=== PATIENT | female | born 1965 | race Caucasian/White ===

== ENCOUNTER 2016-12-26 11:16 | Inpatient (IN) | payer OTHER ==
[~2016-12-26] VITALS: Ht 157.5 cm; Wt 61.7 kg
[2016-12-26] MEDS ORDERED: MORPHINE SULFATE 4 MG/ML CPJ (NOT FOR IM USE) IV STA (13:56)
[2016-12-26] MEDS ORDERED: ONDANSETRON HCL 4MG/2ML VIAL IV STA (13:56)
[2016-12-26] MEDS ORDERED: SODIUM CHLORIDE 0.9% 1000ML BAG (SEPSIS BOLUS) IV ONE (14:00)
[2016-12-26] MEDS ORDERED: PIPERACILLIN/TAZ 3.375G PREMIX 50 ML IV NR (15:00)
[2016-12-26] MEDS ORDERED: BUPIVACAINE HCL 0.5% (5MG/ML) 50ML ONE (15:30)
[2016-12-26] MEDS ORDERED: SKIN ADHESIVE 0.7 GM EA TOP ONE (15:30)
[2016-12-26 15:47] LABS: HEMATOCRIT. 41.6 % (36.0-48.0); HEMOGLOBIN. 14.3 g/dL (12.0-16.0); MEAN CORPUSCULAR HEMOGLOBIN 30.9 pg (28.0-32.0); MEAN CORPUSCULAR VOLUME 90.2 fL (81.0-99.0); MEAN PLATELET VOLUME 8.7 fl (7.4-10.4); PLATELET 164 x1000/uL (130-400); RED BLOOD CELL COUNT 4.61 mill/uL (4.2-5.4); RED CELL DISTRIBUTION WIDTH 13.6 % (11.6-14.6)
[2016-12-26 15:49] LABS: PROTHROMBIN TIME 10.6 sec (9.4-11.6)
[2016-12-26 15:53] LABS: CARBON DIOXIDE 25 mEq/L (21-32); CHLORIDE 106 mEq/L (98-107); HCG SCREEN NEGATIVE
[2016-12-26 15:58] LABS: TROPONIN I < 0.02 ng/mL (0.00-0.04)
[2016-12-26] MEDS ORDERED: MORPHINE SULFATE 2 MG/ML CPJ (NOT FOR IM USE) IV PRN (16:00)
[2016-12-26] MEDS ORDERED: ONDANSETRON HCL 4MG/2ML VIAL IV PRN ×2 (16:00→17:45)
[2016-12-26] MEDS ORDERED: MORPHINE SULFATE 4 MG/ML CPJ (NOT FOR IM USE) IV PRN (16:00)
[2016-12-26 16:11] LABS: PLATELET ESTIMATE NORMAL
[2016-12-26] MEDS ORDERED: DEXAMETHASONE 4MG/ML 1ML VIAL ONE (17:30)
[2016-12-26] MEDS ORDERED: PROPOFOL 200MG/20ML VIAL IV ONE (17:30)
[2016-12-26] MEDS ORDERED: ROCURONIUM BROMIDE 10MG/ML VIAL 5ML IV ONE (17:30)
[2016-12-26] MEDS ORDERED: LABETALOL HCL 20MG/4ML CARPUJECT IV PRN (17:45)
[2016-12-26] MEDS ORDERED: MEPERIDINE HCL/PF 25MG/ML CPJ IV PRN (17:45)
[2016-12-26] MEDS ORDERED: HYDROCODONE/ACETAMINOPHEN 5/325MG TABLET PO PRN (19:00)
[2016-12-26] MEDS: HYDROMORPHONE HCL/PF 2MG/ML CPJ IV PRN ×2 (19:08→19:17)
[2016-12-26] MEDS ORDERED: DEXT 5%/0.45% NACL KCL 20MEQ/L 1,000 ML IV SCH (20:00)
[2016-12-26 20:20] VITALS: BP 90/51
[2016-12-26 20:35] VITALS: BP 90/51
[2016-12-26] MEDS: CEFAZOLIN 1000MG PREMIX 50 ML IV SCH (20:55)
[2016-12-26] MEDS: ACETAMINOPHEN 325MG TABLET PO PRN (21:27)
[2016-12-26] MEDS: METRONIDAZOLE 500 MG PREMIX 100 ML IV SCH (21:35)
[2016-12-26 23:00] VITALS: BP 90/64
[2016-12-27 00:45] VITALS: BP 110/54
[2016-12-27] MEDS: METRONIDAZOLE 500 MG PREMIX 100 ML IV SCH ×4 (03:28→22:43)
[2016-12-27 04:00] VITALS: BP 114/50
[2016-12-27] MEDS: CEFAZOLIN 1000MG PREMIX 50 ML IV SCH ×3 (04:52→21:29)
[2016-12-27 07:56] LABS: BASOPHILS % 0.1 % (0.0-2.0); HEMATOCRIT. 35.9 % (36.0-48.0); HEMOGLOBIN. 12.3 g/dL (12.0-16.0); LYMPHOCYTES % 7.6 % (20.0-50.0); MEAN CORPUSCULAR HEMOGLOBIN 30.8 pg (28.0-32.0); MEAN CORPUSCULAR VOLUME 89.8 fL (81.0-99.0); MEAN PLATELET VOLUME 8.9 fl (7.4-10.4); MONOCYTES % 3.9 % (2.0-8.0); NEUTROPHILS % 88.4 % (40.0-76.0); PLATELET 159 x1000/uL (130-400)
[2016-12-27 08:00] VITALS: BP 95/60
[2016-12-27 08:23] LABS: CARBON DIOXIDE 25 mEq/L (21-32); CHLORIDE 108 mEq/L (98-107)
[2016-12-27] MEDS: ENOXAPARIN 40MG/0.4ML SYR SUBCUT SCH (08:25)
[2016-12-27 12:00] VITALS: BP 101/72
[2016-12-27] MEDS: DEXT 5%/0.45% NACL KCL 20MEQ/L 1,000 ML IV SCH (13:19)
[2016-12-27] MEDS ORDERED: MORPHINE SULFATE 4 MG/ML CPJ (NOT FOR IM USE) IV PRN (14:45)
[2016-12-27 16:00] VITALS: BP 100/55
[2016-12-27] MEDS: ACETAMINOPHEN 325MG TABLET PO PRN ×2 (16:25→17:34)
[2016-12-27 20:00] VITALS: BP 100/59
[2016-12-27] MEDS ORDERED: POTASSIUM CHLORIDE 20MEQ TABLET SR PO NR (21:00)
[2016-12-28] VITALS: BP 106/56
[2016-12-28] MEDS: CEFAZOLIN 1000MG PREMIX 50 ML IV SCH ×3 (03:16→19:34)
[2016-12-28 04:03] VITALS: BP 104/65
[2016-12-28] MEDS: DEXT 5%/0.45% NACL KCL 20MEQ/L 1,000 ML IV SCH ×3 (04:31→18:11)
[2016-12-28] MEDS: METRONIDAZOLE 500 MG PREMIX 100 ML IV SCH ×4 (04:31→22:50)
[2016-12-28 08:00] VITALS: BP 97/69
[2016-12-28] MEDS: ENOXAPARIN 40MG/0.4ML SYR SUBCUT SCH (08:45)
[2016-12-28 11:03] LABS: HEMATOCRIT. 35.7 % (36.0-48.0); HEMOGLOBIN. 12.2 g/dL (12.0-16.0); MEAN CORPUSCULAR HEMOGLOBIN 30.4 pg (28.0-32.0); MEAN CORPUSCULAR VOLUME 88.9 fL (81.0-99.0); MEAN PLATELET VOLUME 8.4 fl (7.4-10.4); PLATELET 172 x1000/uL (130-400); RED BLOOD CELL COUNT 4.01 mill/uL (4.2-5.4); RED CELL DISTRIBUTION WIDTH 13.9 % (11.6-14.6)
[2016-12-28] MEDS: ACETAMINOPHEN 325MG TABLET PO PRN (11:16)
[2016-12-28 11:48] LABS: CARBON DIOXIDE 25 mEq/L (21-32); CHLORIDE 104 mEq/L (98-107)
[2016-12-28 12:00] VITALS: BP 102/69
[2016-12-28] MEDS ORDERED: POTASSIUM CHLORIDE 20MEQ TABLET SR PO NR (12:15)
[2016-12-28 13:17] LABS: PLATELET ESTIMATE NORMAL
[2016-12-28 16:00] VITALS: BP 122/64
[2016-12-28 20:00] VITALS: BP 101/62
[2016-12-28] MEDS: HYDROCODONE/ACETAMINOPHEN 5/325MG TABLET PO PRN (20:01)
[2016-12-29] VITALS: BP 93/50
[2016-12-29] MEDS: CEFAZOLIN 1000MG PREMIX 50 ML IV SCH ×3 (03:43→20:25)
[2016-12-29 04:00] VITALS: BP 93/58
[2016-12-29] MEDS: METRONIDAZOLE 500 MG PREMIX 100 ML IV SCH ×4 (04:45→21:16)
[2016-12-29] MEDS: DEXT 5%/0.45% NACL KCL 20MEQ/L 1,000 ML IV SCH ×2 (04:45→15:39)
[2016-12-29 08:00] VITALS: BP 102/51
[2016-12-29] MEDS: ENOXAPARIN 40MG/0.4ML SYR SUBCUT SCH (08:56)
[2016-12-29 09:31] LABS: BASOPHILS % 0.2 % (0.0-2.0); EOSINOPHILS % 0.8 % (0.0-5.0); HEMATOCRIT. 33.3 % (36.0-48.0); HEMOGLOBIN. 11.4 g/dL (12.0-16.0); LYMPHOCYTES % 7.3 % (20.0-50.0); MEAN CORPUSCULAR HEMOGLOBIN 30.5 pg (28.0-32.0); MEAN CORPUSCULAR VOLUME 89.3 fL (81.0-99.0); MEAN PLATELET VOLUME 8.5 fl (7.4-10.4); MONOCYTES % 4.7 % (2.0-8.0); PLATELET 171 x1000/uL (130-400); RED BLOOD CELL COUNT 3.72 mill/uL (4.2-5.4); RED CELL DISTRIBUTION WIDTH 13.9 % (11.6-14.6)
[2016-12-29 12:00] VITALS: BP_SYST 102; BP_SYST 103; BP_DIAS 51; BP_DIAS 54
[2016-12-29 16:00] VITALS: BP_SYST 115; BP_SYST 154; BP_DIAS 66; BP_DIAS 85
[2016-12-29] MEDS ORDERED: MAGNESIUM/ALUMINUM HYDROXIDE/SIMETHICONE 30ML UDC PO PRN (16:00)
[2016-12-29 20:00] VITALS: BP 97/51
[2016-12-29] MEDS: HYDROCODONE/ACETAMINOPHEN 5/325MG TABLET PO PRN (20:45)
[2016-12-30] VITALS: BP 105/62
[2016-12-30] MEDS: CEFAZOLIN 1000MG PREMIX 50 ML IV SCH ×3 (03:08→20:16)
[2016-12-30 04:00] VITALS: BP_SYST 107; BP_SYST 133; BP_DIAS 68; BP_DIAS 96
[2016-12-30] MEDS: METRONIDAZOLE 500 MG PREMIX 100 ML IV SCH ×3 (04:28→18:21)
[2016-12-30 06:53] LABS: BASOPHILS % 0.3 % (0.0-2.0); EOSINOPHILS % 1.2 % (0.0-5.0); HEMATOCRIT. 36.6 % (36.0-48.0); HEMOGLOBIN. 12.5 g/dL (12.0-16.0); LYMPHOCYTES % 10.4 % (20.0-50.0); MEAN CORPUSCULAR HEMOGLOBIN 30.5 pg (28.0-32.0); MEAN CORPUSCULAR VOLUME 89.5 fL (81.0-99.0); MEAN PLATELET VOLUME 8.3 fl (7.4-10.4); MONOCYTES % 9.3 % (2.0-8.0); NEUTROPHILS % 78.8 % (40.0-76.0); PLATELET 209 x1000/uL (130-400); RED BLOOD CELL COUNT 4.09 mill/uL (4.2-5.4); RED CELL DISTRIBUTION WIDTH 14.2 % (11.6-14.6)
[2016-12-30 08:00] VITALS: BP 74/38
[2016-12-30] MEDS: DEXT 5%/0.45% NACL KCL 20MEQ/L 1,000 ML IV SCH ×2 (09:04→10:29)
[2016-12-30 10:09] LABS: CARBON DIOXIDE 27 mEq/L (21-32); CHLORIDE 104 mEq/L (98-107)
[2016-12-30] MEDS: ENOXAPARIN 40MG/0.4ML SYR SUBCUT SCH (10:29)
[2016-12-30 12:00] VITALS: BP 108/78
[2016-12-30 17:22] VITALS: BP 94/60
[2016-12-30 20:00] VITALS: BP 96/62
[2016-12-30] MEDS: METRONIDAZOLE 500MG TABLET PO SCH (21:52)
[2016-12-31] VITALS: BP 84/54
[2016-12-31] MEDS: METRONIDAZOLE 500MG TABLET PO SCH ×4 (03:53→21:14)
[2016-12-31] MEDS: CEFAZOLIN 1000MG PREMIX 50 ML IV SCH ×3 (03:53→20:08)
[2016-12-31 04:00] VITALS: BP 71/36
[2016-12-31] MEDS: ENOXAPARIN 40MG/0.4ML SYR SUBCUT SCH (08:22)
[2016-12-31] MEDS: DEXT 5%/0.45% NACL KCL 20MEQ/L 1,000 ML IV SCH ×2 (08:22→20:08)
[2016-12-31 12:00] VITALS: BP 73/93
[2016-12-31 16:00] VITALS: BP 118/62
[2016-12-31 20:00] VITALS: BP 102/65
[2017-01-01] VITALS: BP 110/67
[2017-01-01 04:00] VITALS: BP 110/70
[2017-01-01] MEDS: CEFAZOLIN 1000MG PREMIX 50 ML IV SCH (04:21)
[2017-01-01] MEDS: DEXT 5%/0.45% NACL KCL 20MEQ/L 1,000 ML IV SCH (04:21)
[2017-01-01] MEDS: METRONIDAZOLE 500MG TABLET PO SCH ×2 (04:21→09:02)
[2017-01-01 08:00] VITALS: BP 100/62
[2017-01-01] MEDS: ENOXAPARIN 40MG/0.4ML SYR SUBCUT SCH (08:14)
[2017-01-01 10:21] VITALS: BP 100/62
== END 2017-01-01 11:54 | disposition home or self-care (01) | DRG 339 ==
LOC: ER 13:58 → EDBEDREQ 14:09 → ORIP 15:57 → 8WST 18:45
PROVIDERS: ADMIT Hospitalist; ATTEND Surgery
PROC: 0DJD4ZZ Inspection of Lower Intestinal Tract, Percutaneous Endoscopic Approach (ICD-10-PCS; 2016-12-26)
PROC: 0DTJ0ZZ Resection of Appendix, Open Approach (ICD-10-PCS; principal; 2016-12-26 15:30)
DX: K35.2 Acute appendicitis with generalized peritonitis (principal); K56.7 Ileus, unspecified; K91.89 Other postprocedural complications and disorders of digestive system; E87.6 Hypokalemia; K38.1 Appendicular concretions; Z53.31 Laparoscopic surgical procedure converted to open procedure; Z90.710 Acquired absence of both cervix and uterus
CPT/HCPCS: 36415; 71010; 74176; 80048; 80053; 83605; 83690; 84484; 84703; 85025; 85610; 87040; 87493; 88304; 93005; 96361; 96365; 96375; 99285; C1893; J0690; J1100; J1170; J1650; J2270; J2405; J2543; J2704; J3490; J7030

== ENCOUNTER 2020-04-20 14:05 | Emergency (ER) | payer OTHER ==
[~2020-04-20] VITALS: Ht 157.5 cm; Wt 68.0 kg
[2020-04-20 14:09] VITALS: BP 120/74
[2020-04-20] MEDS ORDERED: ACETAMINOPHEN 325MG TABLET PO STA (14:37)
== END 2020-04-20 15:43 | disposition home or self-care (01) ==
LOC: ER 14:05
DX: M25.562 Pain in left knee (principal); M25.561 Pain in right knee; M25.512 Pain in left shoulder; R07.81 Pleurodynia; W01.0XXA Fall on same level from slipping, tripping and stumbling without subsequent striking against object, initial encounter; Y93.89 Activity, other specified; Y92.018 Other place in single-family (private) house as the place of occurrence of the external cause
CPT/HCPCS: 71045; 73030; 73562; 99284